=== PATIENT | female | born 1985 | race Caucasian/White ===

== ENCOUNTER 2018-01-22 15:29 | Emergency (ER) | payer SELFPAY ==
[2018-01-22 17:03] LABS: Urine Blood NEGATIVE (NEG); Urine Glucose NEGATIVE (NEG); Urine Protein TRACE (NEG); Urine Specific Gravity 1.015 (1.005-1.030); Urine pH 8.5 (5.0-7.0)
--- NOTE | 2018-01-22 17:07 | RAD REPORT ---
EXAM DESCRIPTION: RAD - Ankle Right 3 View - 01/22/2018 5:01 pm CLINICAL HISTORY: PAIN Trauma, fall COMPARISON: No comparisons FINDINGS: Soft tissue swelling is seen along the lateral malleolus. Oblique fracture is suspected in volving the fifth metatarsal shaft. No dislocation suspected. IMPRESSION: Oblique fracture fifth metatarsal shaft.
--- NOTE | 2018-01-22 17:08 | RAD REPORT ---
EXAM DESCRIPTION: RAD - Foot Right 3 View - 01/22/2018 5:02 pm CLINICAL HISTORY: PAIN Trauma, fall COMPARISON: Foot Right 3 View dated 02/15/2016 FINDINGS: Minimally displaced oblique fracture fifth metatarsal shaft is noted with adjacent soft ti ssue swelling. No dislocation evident. IMPRESSION: Oblique fracture fifth metatarsal shaft.
[2018-01-22] MEDS ORDERED: HYDROCODONE/APAP 5/325 MG TAB ONE (17:17)
[2018-01-22] MEDS ORDERED: IBUPROFEN 200 MG TAB PO ONE (17:17)
--- NOTE | 2018-01-22 17:50 | ER ---
Nurse's Notes [facility] Name: Jazmín Escamilla Age: 32 yrs Sex: Female : 1985 Arrival Date: 01/22/2018 Time: 15:40 Bed 19 Private MD: Diagnosis: Displaced fracture of fifth metatarsal bone, right foot Presentation: 01/22 15:51 Presenting complaint: Patient states: Right ankle/foot pain 2nd to mechanical fall. rk2 Denies LOC or hitting head. Transition of care: patient was not received from another setting of care. Onset of symptoms was January 22, 2018. Risk Assessment: Do you want to hurt yourself or someone else? Patient reports no desire to harm self or others. Initial Sepsis Screen: Does the patient meet any 2 criteria? No. Patient's initial sepsis screen is negative. Does the patient have a suspected source of infection? No. Patient's initial sepsis screen is negative. Care prior to arrival: None. 15:51 Method Of Arrival: Wheelchair rk2 15:51 Acuity: WANG 4 rk2 Triage Assessment: 16:00 General: Appears in no apparent distress. uncomfortable, well groomed, well developed, kr2 well nourished, Behavior is calm, cooperative, appropriate for age. Injury Description: fall resulting in swelling and pain to right foot and ankle. 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 - Social history:: Smoking status: Patient uses tobacco products, smokes two packs cigarettes per day. - Ebola Screening: : Patient negative for fever greater than or equal to 101.5 degrees Fahrenheit, and additional compatible Ebola Virus Disease symptoms. Screenin:59 Abuse screen: Denies threats or abuse. Denies injuries from another. Nutritional kr2 screening: No deficits noted. Tuberculosis screening: No symptoms or risk factors identified. Fall Risk None identified. Assessment: 15:55 General: Appears in no apparent distress. uncomfortable, well groomed, well developed, kr2 well nourished, Behavior is calm, cooperative, appropriate for age. Pain: Complains of pain in dorsum of right foot and lateral aspect of right foot and right ankle Pain does not radiate. Pain currently is 7 out of 10 on a pain scale. Quality of pain is described as aching, tender, Is continuous, Alleviated by rest, Aggravated by repositioning, weight bearing, Noted to be grimacing. Neuro: Level of Consciousness is awake, alert, obeys commands, Oriented to person, place, time, situation, Appropriate for age. Cardiovascular: Capillary refill < 3 seconds in bilateral fingers Patient's skin is warm and dry. Respiratory: Airway is patent Respiratory effort is even, unlabored, Respiratory pattern is regular, symmetrical. Derm: Skin is intact, is healthy with good turgor, Skin is pink, warm \T\ dry. Musculoskeletal: Circulation, motion, and sensation intact. Range of motion: limited in right ankle. 16:40 Reassessment: Patient appears in no apparent distress at this time. Patient and/or kr2 family updated on plan of care and expected duration. Pain level reassessed. Patient is alert, oriented x 3, equal unlabored respirations, skin warm/dry/pink. 18:07 Reassessment: Patient appears in no apparent distress at this time. Patient and/or kr2 family updated on plan of care and expected duration. Pain level reassessed. Patient is alert, oriented x 3, equal unlabored respirations, skin warm/dry/pink. Boot placed to right lower extremity as ordered by Nadya Corbett. Crutches given and patient educated on use of crutches Patient states feeling better. Vital Signs: 15:52 BP 99 / 68; Pulse 83; Resp 17; Temp 98.8; Pulse Ox 98% ; Pain 8/10; rk2 16:40 BP 105 / 63; Pulse 74; Resp 16; Pulse Ox 97% on R/A; kr2 18:07 BP 106 / 70; Pulse 75; Resp 17; Pulse Ox 99% on R/A; kr2 ED Course: 15:40 Patient arrived in ED. as 15:44 Rubens Bueno PA is PHCP. cp 15:44 Glen Douglass MD is Attending Physician. cp 15:47 Rosa Dickerson, TIMMY is Primary Nurse. kr2 15:52 Triage completed. rk2 15:59 Arm band placed on. kr2 16:01 Patient has correct armband on for positive identification. Bed in low position. Call kr2 light in reach. Side rails up X 1. Adult w/ patient. Pulse ox on. NIBP on. 17:00 X-ray completed. Portable x-ray completed in exam room. Patient tolerated procedure la2 well. 17:01 XRAY Foot RIGHT 3 View In Process Unspecified. EDMS 17:01 XRAY Ankle RIGHT 3 view In Process Unspecified. EDMS 17:48 Lincoln Boles MD is Referral Physician. cp 17:52 Crutch training done. walking boot and crutch traing. mh5 18:09 No provider procedures requiring assistance completed. Patient did not have IV access kr2 during this emergency room visit. Administered Medications: 17:20 Drug: Ibuprofen 600 mg Route: PO; kr2 18:09 Follow up: Response: No adverse reaction; Pain is decreased kr2 17:20 Drug: HYDROcodone-acetaminophen 5 mg-325 mg 1 tabs Route: PO; kr2 18:08 Follow up: Response: No adverse reaction; Pain is decreased kr2 Outcome: 17:50 Discharge ordered by MD. cp 18:09 Discharged to home via wheelchair, with family. kr2 18:09 Condition: good 18:09 Discharge instructions given to patient, family, Instructed on discharge instructions, follow up and referral plans. medication usage, crutch walking, use of walking boot Demonstrated understanding of instructions, follow-up care, medications, crutch walking, walking boot Prescriptions given X 2. 18:10 Patient left the ED. kr2 Signatures: Dispatcher [employer] DARYLCT Raya Mcpherson Corey, PA PA cp Martinez, Maria 5 Harriet Ladd az2 Rosa Dickerson, RN RN kr2 Tali Sheridan RN RN rk2 Corrections: (The following items were deleted from the chart) 18:08 18:07 Reassessment: Patient appears in no apparent distress at this time. Patient kr2 and/or family updated on plan of care and expected duration. Pain level reassessed. Patient is alert, oriented x 3, equal unlabored respirations, skin warm/dry/pink. Patient states feeling better. kr2
--- NOTE | 2018-01-22 17:50 | EDPHYS ---
Physician Documentation [facility] Name: Jazmín Escamilla Age: 32 yrs Sex: Female : 1985 Arrival Date: 01/22/2018 Time: 15:40 Bed 19 Private MD: ED Physician Glen Douglass HPI: 01/22 15:50 This 32 yrs old Female presents to ER via Unassigned with complaints of Foot cp Injury. 15:50 The patient presents with an injury, pain, that is acute. The complaints affect the cp right ankle, lateral aspect of right foot and dorsum of right foot. 15:50 Context: misstep occurred getting out of car today. 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 - Social history:: Smoking status: Patient uses tobacco products, smokes two packs cigarettes per day. - Ebola Screening: : Patient negative for fever greater than or equal to 101.5 degrees Fahrenheit, and additional compatible Ebola Virus Disease symptoms. ROS: 15:56 Eyes: Negative for injury, pain, redness, and discharge. cp 15:56 Constitutional: Negative for body aches, chills, fever, poor PO intake. 15:56 ENT: Negative for drainage from ear(s), ear pain, sore throat, difficulty swallowing, difficulty handling secretions. 15:56 Respiratory: Negative for cough, shortness of breath, wheezing. 15:56 Abdomen/GI: Negative for abdominal pain, nausea, vomiting, and diarrhea. 15:56 Back: Negative for pain at rest, pain with movement, radiated pain. 15:56 MS/extremity: Positive for injury or acute deformity, ecchymosis, pain, swelling, tenderness, of the dorsum of right foot and lateral aspect of right foot and right ankle, Negative for paresthesias. 15:56 All other systems are negative. Exam: 16:05 Constitutional: The patient appears in no acute distress, alert, awake, non-toxic, well cp developed, well nourished. 16:05 Head/Face: Normocephalic, atraumatic. cp 16:05 Eyes: Periorbital structures: appear normal, Conjunctiva: normal, no exudate, no cp injection, Lids and lashes: appear normal, bilaterally. 16:05 ENT: External ear(s): are unremarkable, Nose: is normal, Mouth: is normal, Posterior pharynx: is normal, airway is patent. 16:05 Chest/axilla: Inspection: normal. 16:05 Cardiovascular: Rate: normal, Rhythm: regular. 16:05 Respiratory: the patient does not display signs of respiratory distress, Respirations: normal, no use of accessory muscles, no retractions, no splinting, no tachypnea. 16:05 Abdomen/GI: Exam negative for discomfort, distension, guarding, Inspection: abdomen appears normal. 16:05 Back: pain, is absent, ROM is normal. 16:05 Musculoskeletal/extremity: Extremities: grossly normal except: noted in the dorsum of right foot and lateral aspect of right foot and right ankle: ecchymosis, pain, swelling, tenderness, Pulses: noted to be 2+ in the right dorsalis pedis artery, Sensation intact. Achilles tendon intact and no pain noted proximal fibula. 16:05 Skin: cellulitis, is not appreciated, no rash present. cp Vital Signs: 15:52 BP 99 / 68; Pulse 83; Resp 17; Temp 98.8; Pulse Ox 98% ; Pain 8/10; rk2 16:40 BP 105 / 63; Pulse 74; Resp 16; Pulse Ox 97% on R/A; kr2 18:07 BP 106 / 70; Pulse 75; Resp 17; Pulse Ox 99% on R/A; kr2 Procedures: 18:05 Splinting: Splint applied to right ankle and right foot using walking boot. applied by cp nurse. Examined by me, post splint application: neurovascular intact, Patient tolerated well. 18:05 Crutch training provided to patient and/or family. Return demonstration given. cp MDM: 15:49 Patient medically screened. cp 17:45 Data reviewed: vital signs, nurses notes, radiologic studies, plain films. cp 17:45 Test interpretation: by ED physician or midlevel provider: plain radiologic studies. cp Counseling: I had a detailed discussion with the patient and/or guardian regarding: the historical points, exam findings, and any diagnostic results supporting the discharge/admit diagnosis, radiology results, the need for outpatient follow up, a orthopedic surgeon, to return to the emergency department if symptoms worsen or persist or if there are any questions or concerns that arise at home. Response to treatment: the patient's symptoms have markedly improved after treatment. 01/22 16:29 Order name: Urine Dipstick--Ancillary (enter results); Complete Time: 17:09 em1 01/22 17:09 Interpretation: Normal except: UPH 8.5. cp 01/22 16:29 Order name: Urine --Ancillary (enter results); Complete Time: 17:09 em1 01/22 15:50 Order name: XRAY Foot RIGHT 3 View; Complete Time: 17:09 cp 01/22 15:50 Order name: XRAY Ankle RIGHT 3 view; Complete Time: 17:09 cp 01/22 15:50 Order name: Urine Test (obtain specimen); Complete Time: 16:27 cp 01/22 15:50 Order name: Urine Dipstick-Ancillary (obtain specimen); Complete Time: 16:27 cp 01/22 17:10 Order name: Crutches; Complete Time: 17:42 cp 01/22 17:31 Order name: Walking boot; Complete Time: 17:42 cp Administered Medications: 17:20 Drug: Ibuprofen 600 mg Route: PO; kr2 18:09 Follow up: Response: No adverse reaction; Pain is decreased kr2 17:20 Drug: HYDROcodone-acetaminophen 5 mg-325 mg 1 tabs Route: PO; kr2 18:08 Follow up: Response: No adverse reaction; Pain is decreased kr2 Disposition: 01/23 13:41 Co-signature as Attending Physician, Glen Douglass MD. Disposition: 01/22/18 17:50 Discharged to Home. Impression: Displaced fracture of fifth metatarsal bone, right foot. - Condition is Stable. - Discharge Instructions: Metatarsal Fracture, Undisplaced. - Prescriptions for Ibuprofen 600 mg Oral Tablet - take 1 tablet by ORAL route every 6 hours As needed take with food; 30 tablet. Tylenol- Codeine #3 300-30 mg Oral Tablet - take 2 tablets by ORAL route every 6 hours As needed; 20 tablet. - Medication Reconciliation Form, Thank You Letter, Antibiotic Education, Prescription Opioid Use form. - Follow up: Lincoln Boles MD; When: 5 - 6 days; Reason: right foot fracture. - Problem is new. - Symptoms have improved. Signatures: Dispatcher [employer] EDMS Rubens Bueno PA PA cp Glen Douglass MD MD Rosa Dickerson RN RN kr2 Tali Sheridan RN RN rk2 Corrections: (The following items were deleted from the chart) 01/22 17:31 17:10 Splint - Posterior Leg ordered. cp cp 18:10 17:50 01/22/2018 17:50 Discharged to Home. Impression: Displaced fracture of fifth kr2 metatarsal bone, right foot. Condition is Stable. Forms are Medication Reconciliation Form, Thank You Letter, Antibiotic Education, Prescription Opioid Use. Follow up: Dr. Lincoln Boles; When: 5 - 6 days; Reason: right foot fracture. Problem is new. Symptoms have improved. cp
== END 2018-01-22 18:10 | disposition home or self-care (01) ==
LOC: ER 15:29
DX: S92.351A Displaced fracture of fifth metatarsal bone, right foot, initial encounter for closed fracture (principal); X58.XXXA Exposure to other specified factors, initial encounter; Y93.89 Activity, other specified; Y92.9 Unspecified place or not applicable; F17.210 Nicotine dependence, cigarettes, uncomplicated
CPT/HCPCS: 81003; 81025; 99284

== ENCOUNTER 2021-12-04 23:26 | Emergency (ER) | payer SELFPAY ==
--- OUTSIDE RECORDS SUMMARY | 2021-12-04 23:29 | XMS REPORT | Continuity of Care Document ---
:1985 Author Organization [facility] t Address [address] [place] [address] Care Team Providers Name Role Phone Dominick Mehta Primary Care Physician Bernarda Melgar Attending Clinician Bernarda CULP Attending Clinician Unavailable Doctor Unassigned, Name Attending Clinician Unavailable Dominick Mehta Attending Clinician Oksana HARTLEY R Attending Clinician Payers Payer Name Policy Type Policy Number Effective Date Expiration Date S ource Advance Directives Directive Decision Effective Termination Comments Source Date Date Healthcare Agents on N/A [facility] FileNameRelationipHealthVon [facility] Agent Medical RelationshipCommunicationCyntdca Branch WilcoxMotherHealth Care [phone] (Mobile) Problems Condition Condition Condition Status Onset Resolution Last Treating Co mments Source Name Details Category Date Date Treatment Clinician Date Nexplanon Nexplanon Disease Active Uni vers insertion insertion 5-10 ity of 00:00: [place] 00 Medical Branch Papanicola Papanicola Disease Active U nivers ou smear ou smear 9-19 ity of of cervix [place] with [place] 00 Med[place] ross grade grade 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) Cervical Cervical Disease Active Unive rs high risk high risk 9-19 ity of human human 00:00: [place] papillomav papillomav 00 Me dical irus (HPV) irus (HPV) Br anch DNA test DNA test positive positive Abnormal Abnormal Disease Active Unive rs glandular glandular 9-19 ity of Papan[place]ola [place] smear 00 Medica l of cervix of cervix Bran ch BMI BMI Disease Active Univers 21.0-21.9, 21.0-21.9, 9-11 it y of adult adult 00:00: [address] Tobacco Tobacco Disease Active Univers use use 9-11 ity of disorder disorder 00:00: [address] Nexplanon Nexplanon Disease Active Uni vers removal removal 9-14 ity of 00:00: [address] Active Active Disease Active Univers labor at labor at 7-30 ity of term term 00:00: [address] Uterine Uterine Disease Active Univers size-date size-date 6-30 [place] of discrepanc discrepanc [place], [place] Medical antepartum antepartum Br anch , third , third trimester trimester Need for Need for Disease Active Unive rs Tdap Tdap 6-16 ity of vaccinatio vaccinatio 00:[place] 00 [facility] Uterine Uterine Disease Active Univers size-date size-date 5-20 ity of discrepanc discrepanc 00:[place], 00 Medical antepartum antepartum Br anch , second , second trimester trimester Dizziness Dizziness Disease Active Uni vers and and 5-20 ity of giddiness giddiness 00:[place] [facility] Branch Coughing Coughing Disease Active Unive rs 5-20 ity of 00:00: [address] Anemia of Anemia of Disease Active Uni vers mother in mother in 4-17 ity of , , [place] antepartum antepartum 00 Me dical Branch History of History of Disease Active U nivers loop loop 3-16 ity of electrical electrical [place] excision excision 00 Medica l procedure procedure Bran ch (LEEP) (LEEP) Supervisio Supervisio Disease Active U nivers n of n of 3-16 ity of high-risk high-risk 00:[place] with with Branch insufficie insufficie nt nt care care Multiparit Multiparit Disease Active U nivers y y 3-16 ity of 00:00: [place] 00 Medical Branch Uncertain Uncertain Disease Active Uni vers dates, dates, 3-16 ity of antepartum antepartum [place] Tooth pain Tooth pain Disease Active U nivers 3-16 ity of 00:00: [place] 00 [facility] Tobacco Tobacco Disease Active Univers use use 3-16 ity of complicati complicati 00:00[place] ng ng 00 Medical Bran ch History of History of Disease Active Overview : Univers loop loop 3-16 Term baby ity of electrosur electrosur 00:[place] gical gical 00 procedure Medical excision excision Branch procedure procedure (LEEP) of (LEEP) of cervix cervix affecting affecting Allergies, Adverse Reactions, Alerts Allergy Allergy Status Severity Reaction(s) Onset Inactive Treating Comm ents Source Name Type Date Date Clinician NO KNOWN Drug Active Univers ALLERGIE Class ity of S [facility] Social History Social Habit Start Date Stop Date Quantity Comments Source Exposure to Not sure University of SARS-CoV-2 (event) [facility] History of tobacco Cigarette Smoker University of [facility] Alcohol intake 2020-12-31 2020-12-31 0 /d University of 00:00:00 00:00:00 [facility] Tobacco use and 2014-07-02 2014-07-02 Never used Universit y of exposure 00:00:00 00:00:00 [facility] Cigarettes smoked 2014-07-02 2014-07-02 Univers ity of current (pack per 00:00:00 00:00:00 [place] Gabriel ) - Reported Branch Tobacco Comment 2014-07-02 2014-07-02 has cut Universit y of 00:00:00 00:00:00 back-smokes 2-3 [place] Med ical x per day Branch Sex [birth year] Universit y of 00:00:00 00:00:00 [facility] Smoking Status Start Date Stop Date Source Current every day smoker 2014-07-02 00:00:00 Uni versity of [facility] Medications Ordered Filled Start Stop Current Ordering Indication Dosage Frequency Signature Comments Components Source Medication Medication Date Date Medication? Clinician (SIG) Name Name etonogestre 2020- No [id number] 68mg Univers L 12-31- ity of (NEXPLANON) 16:00: 14:56 [place] implant 68 00 :00 Medical mg Branch etonogestre 2020- No [id number] 68mg 68 mg, Univers L 12-31- Subdermal, ity of (NEXPLANON) 16:00: 14:56 ONCE NOW, [place] implant 68 00 :00 1 dose, Medica l mg [facility] 12/31/20 at 1100, Routine
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
Use approved by: DRAG OUT WORKER No known No Univers medications 5-26 ity of 10:34: [address] No known No Univers medications 5-26 ity of 10:34: [address] traMADOL Yes 50mg Take 1 Univers (ULTRAM) 50 7-31 tablet by ity of mg tablet 00:00: mouth [place] 00 every 6 Medical (six) Branch hours as needed for Pain unrelieved by non-narcot ic analgesics . docusate Yes 240mg Take 1 Univer s calcium 7-31 capsule by ity of (SURFAK) 00:00: mouth once [place] 240 mg 00 daily as Medical capsule needed for Branch Constipati on. ibuprofen Yes 600mg Take 1 Unive rs (MOTRIN) 7-31 tablet by ity of 600 mg 00:00: mouth [place] tablet 00 every 6 Medical (six) Branch hours as needed for Pain (scale 1-3) or Pain (scale 4-6). Take with food or milk. traMADOL Yes 50mg Take 1 Univers (ULTRAM) 50 7-31 tablet by ity of mg tablet 00:00: mouth [place] 00 every 6 Medical (six) Branch hours as needed for Pain unrelieved by non-narcot ic analgesics . docusate Yes 240mg Take 1 Univer s calcium 7-31 capsule by ity of (SURFAK) 00:00: mouth once [place] 240 mg 00 daily as Medical capsule needed for Branch Constipati on. ibuprofen Yes 600mg Take 1 Unive rs (MOTRIN) 7-31 tablet by ity of 600 mg 00:00: mouth [place] tablet 00 every 6 Medical (six) Branch hours as needed for Pain (scale 1-3) or Pain (scale 4-6). Take with food or milk. traMADOL 2018- No 50mg Take 1 Univer s (ULTRAM) 50 7--11 tablet by it y of mg tablet 00:00: 00:00 mouth [place] 00 :00 every 6 Medical (six) Branch hours as needed for Pain unrelieved by non-narcot ic analgesics . docusate 2019- No 240mg Take 1 Unive rs calcium 7-- capsule by ity o f (SURFAK) 00:00: 00:00 mouth [place] 240 mg 00 :00 daily as Medical capsule needed for Branch Constipati on. ibuprofen 2019- No 600mg Take 1 Univ ers (MOTRIN) 7--11 tablet by ity o f 600 mg 00:00: 00:00 mouth [place] tablet 00 :00 every 6 Medical (six) Branch hours as needed for Pain (scale 1-3) or Pain (scale 4-6). Take with food or milk. traMADOL 2019- No 50mg Take 1 Univer s (ULTRAM) 50 7- 09-11 tablet by it y of mg tablet 00:00: 00:00 mouth [place] 00 :00 every 6 Medical (six) Branch hours as needed for Pain unrelieved by non-narcot ic analgesics . docusate 2019- No 240mg Take 1 Unive rs calcium 7-31 09-11 capsule by ity o f (SURFAK) 00:00: 00:00 mouth [place] 240 mg 00 :00 daily as Medical capsule needed for Branch Constipati on. ibuprofen 2018- No 600mg Take 1 Univ ers (MOTRIN) 03-07 tablet by ity o f 600 mg 00:00: 00:00 mouth [place] tablet 00 :00 every 6 Medical (six) Branch hours as needed for Pain (scale 1-3) or Pain (scale 4-6). Take with food or milk. ferrous Yes 325mg Take 1 Univers sulfate 5-20 tablet by ity of (IRON, 00:00: mouth 3 [place] FERROUS 00 (three) Medical SULFATE,) times Branch 325 mg (65 daily with mg iron) meals. tablet ferrous Yes 325mg Take 1 Univers sulfate 5-20 tablet by ity of (IRON, 00:00: mouth 3 [place] FERROUS 00 (three) Medical SULFATE,) times Branch 325 mg (65 daily with mg iron) meals. tablet ferrous 2018- No 325mg Take 1 Univer s sulfate 12-25 tablet by ity of (IRON, 00:00: 00:00 mouth 3 [place] FERROUS 00 :00 (three) Medical SULFATE,) times Branch 325 mg (65 daily with mg iron) meals. tablet ferrous 2018- No 325mg Take 1 Univer s sulfate -04-18 tablet by ity of (IRON, 00:00: 00:00 mouth 3 [place] FERROUS 00 :00 (three) Medical SULFATE,) times Branch 325 mg (65 daily with mg iron) meals. tablet No known No [facility] No known No [facility] No known No [facility] No known No [facility] No known No Univers medications [facility] No known No Univers medications [facility] Immunizations Ordered Filled Immunization Date Status Comments [facility] e Immunization Name Name [facility] 2016-01-22 Completed University of 00:00:00 [facility] Td 2016-01-22 Completed University of 00:00:00 [facility] Td 2016-01-22 Completed University of 00:00:00 [facility] TDAP 2016-01-22 Completed University of 00:00:00 [place] [facility] TDAP 2016-01-22 Completed University of 00:00:00 [place] [facility] TDAP 2016-01-22 Completed University of 00:00:00 [place] [facility] TDAP 2016-01-22 Completed University of 00:00:00 [place] [facility] TDAP 2016-01-22 Completed University of 00:00:00 [place] [facility] TDAP 2016-01-22 Completed University of 00:00:00 [place] [facility] TDAP 2016-01-22 Completed University of 00:00:00 [place] [facility] TDAP 2016-01-22 Completed University of 00:00:00 [place] [facility] TDAP 2016-01-22 Completed University of 00:00:00 [place] [facility] Tdap 2016-01-22 Completed University of 00:00:00 [place] [facility] Tdap 2016-01-22 Completed University of 00:00:00 [place] [facility] Tdap 2016-01-22 Completed University of 00:00:00 [facility] Branch Tdap 2014-10-18 Completed University of 00:00:00 [place] [facility] Tdap 2014-10-18 Completed University of 00:00:00 [place] [facility] Tdap 2014-10-18 Completed University of 00:00:00 [place] [facility] TDAP 2014-10-18 Completed University of 00:00:00 [place] [facility] TDAP 2014-10-18 Completed University of 00:00:00 [place] [facility] TDAP 2014-10-18 Completed University of 00:00:00 [place] [facility] TDAP 2014-10-18 Completed University of 00:00:00 [place] [facility] TDAP 2014-10-18 Completed University of 00:00:00 [place] [facility] TDAP 2014-10-18 Completed University of 00:00:00 [place] [facility] TDAP 2014-10-18 Completed University of 00:00:00 [place] [facility] TDAP 2014-10-18 Completed University of 00:00:00 [place] [facility] TDAP 2014-10-18 Completed University of 00:00:00 [place] [facility] Tdap 2014-10-18 Completed University of 00:00:00 [place] [facility] Tdap 2014-10-18 Completed University of 00:00:00 [place] [facility] Tdap 2014-10-18 Completed University of 00:00:00 [facility] Branch Td 2007-08-08 Completed University of 00:00:00 [place] [facility] Td 2007-08-08 Completed University of 00:00:00 [place] [facility] Td 2007-08-08 Completed University of 00:00:00 [place] [facility] Td 2007-08-08 Completed University of 00:00:00 [place] [facility] Td 2007-08-08 Completed University of 00:00:00 [place] [facility] Td 2007-08-08 Completed University of 00:00:00 [place] [facility] Td 2007-08-08 Completed University of 00:00:00 [place] [facility] Td 2007-08-08 Completed University of 00:00:00 [place] [facility] Td 2007-08-08 Completed University of 00:00:00 [place] [facility] Td 2007-08-08 Completed University of 00:00:00 [place] [facility] Td 2007-08-08 Completed University of 00:00:00 [place] [facility] Td 2007-08-08 Completed University of 00:00:00 [place] [facility] Td 2007-08-08 Completed University of 00:00:00 [place] [facility] Td 2007-08-08 Completed University of 00:00:00 [place] [facility] Td 2007-08-08 Completed University of 00:00:00 [facility] Vital Signs Vital Name Observation Time Observation Value Comments Source Systolic blood 2020-12-31 14:36:00 116 mm[Hg] Univer sity of pressure [facility] Diastolic blood 2020-12-31 14:36:00 75 mm[Hg] Unive rsity of [facility] Heart rate 2020-12-31 14:36:00 76 /[facility] Body temperature 2020-12-31 14:36:00 37.17 Norah [facility] ersity [facility] Respiratory rate 2020-12-31 14:36:00 16 /min [facility] ersity [facility] Body height 2020-12-31 14:36:00 149.9 cm [facility] Body weight 2020-12-31 14:36:00 49.261 kg [facility] BMI 2020-12-31 14:36:00 21.93 kg/m2 [facility] ty [facility] Heart rate 2020-12-15 19:13:00 86 /min [facility] Body temperature 2020-12-15 19:13:00 36.83 Norah [facility] Respiratory rate 2020-12-15 19:13:00 16 /min Univ ersity of [place] [facility] Body height 2020-12-15 19:13:00 152.4 cm Universi ty of [place] [facility] Body weight 2020-12-15 19:13:00 49.079 kg Universi ty of [place] [facility] BMI 2020-12-15 19:13:00 21.13 kg/m2 Universi ty of [place] [facility] Systolic blood 2019-04-18 18:25:00 106 mm[Hg] Univer sity of pressure [place] [facility] Diastolic blood 2019-04-18 18:25:00 74 mm[Hg] Unive rsity of pressure [place] [facility] Heart rate 2019-04-18 18:25:00 73 /min Universi ty of [place] [facility] Body temperature 2019-04-18 18:25:00 36.56 Norah Univ ersity of [place] [facility] Respiratory rate 2019-04-18 18:25:00 16 /min Univ ersity of [place] [facility] Body height 2019-04-18 18:25:00 149.9 cm Universi ty of [place] [facility] Body weight 2019-04-18 18:25:00 47.401 kg Universi ty of [place] [facility] BMI 2019-04-18 18:25:00 21.11 kg/m2 Universi ty of [place] [facility] Systolic blood 2019-03-14 02:23:00 101 mm[Hg] Univer sity of pressure [place] [facility] Diastolic blood 2019-03-14 02:23:00 72 mm[Hg] Unive rsity of pressure [place] [facility] Heart rate 2019-03-14 02:23:00 83 /min Universi ty of [place] [facility] Body temperature 2019-03-14 02:23:00 36.94 Norah Univ ersity of [place] [facility] Respiratory rate 2019-03-14 02:23:00 18 /min Univ ersity of [place] [facility] Body height 2019-03-14 02:23:00 149.9 cm Universi ty of [place] [facility] Body weight 2019-03-14 02:23:00 46.72 kg Universi ty of [place] [facility] BMI 2019-03-14 02:23:00 20.80 kg/m2 Universi ty of [place] [facility] Oxygen saturation in 2019-03-14 02:23:00 100 /min [facility] Arterial blood by [facility] Pulse oximetry Branch Procedures Procedure Date / Time Performing Clinician Source Performed POCT TEST 2020-12-31 14:38:00 Camryn Culp [facility] CONSENT FOR 2020-12-31 05:01:00 Doctor Unassigned, No [facility] CONTRACEPTION [facility] POCT TEST 2020-12-15 19:14:00 Camryn Culp [facility] ASSIGNMENT OF BENEFITS 2020-12-15 18:44:44 Doctor Unassigned, No [facility] BCCS-RELATED 2019-10-08 06:01:00 Doctor Unassigned, No [facility] DOCUMENTATION [facility] ASSIGNMENT OF BENEFITS 2019-04-18 18:02:23 Doctor Unassigned, No [facility] XR FOOT 3+ VW RIGHT 2019-03-14 03:08:57 Katerin Gandhi [facility] NOTICE OF PRIVACY 2019-03-14 02:18:08 Doctor Unassigned, No [facility] CONSENT/REFUSAL FOR 2019-03-14 02:17:48 [facility] Encounters Start End Encounter Admission Attending Care Care Encounter Source Date/Time Date/Time Type Type Clinicians Facility Department ID 2021-10-12 2021-10-12 Telephone EDSON Culp [id number] Univers 00:00:00 00:00:00 Camryn Menchaca [employer]ER [id number] ity of [facility] [id number] [place] MATERNAL [id number] Med ical & CHILD [address] [place] [address] 2021-07-16 2021-07-16 Telephone EDSON Culp [id number] Univers 00:00:00 00:00:00 Camryn Menchaca [employer] OUT WORKER [id number] ity of [facility] [id number] [place] MATERNAL [id number] Med ical & CHILD [address] [place] [address] 2020-12-31 2020-12-31 Office EDSON Culp [id number] Univers 09:16:11 10:12:00 Visit Camryn R [employer] [id number] ity of REGIONAL [id number] [place] MATERNAL [phone] [facility] & [address] 2020-12-31 2020-12-31 Outpatient Bernarda CULP [facility] [id number] Univers 09:00:00 09:00:00 CAMRYN [id number] ity o f [facility] 2020-12-31 2020-12-31 [id number] Univers 09:00:00 09:00:00 SVENNDA ity o [facility] 2020-12-31 2020-12-31 Orders Doctor BYRON [id number] Univers 00:00:00 00:00:00 Only Unassigned, OLY [id number] ity of [facility] [id number] [place] as [id number] [address] 2020-12-15 2020-12-15 [facility] [id number] Univers 13:46:08 14:40:19 Visit Camryn Menchaca [employer] [id number] ity of REGIONAL [id number] [place] MATERNAL [phone] [facility] & [address] 2020-12-15 2020-12-15 [facility] [id number] Univers 13:30:00 13:30:00 SVENLESLEY [id number] ity o [facility] 2020-12-15 2020-12-15 [facility] [id number] Univers 13:30:00 13:30:00 SVENNDA ity o [facility] 2020-12-15 2020-12-15 Orders Doctor BYRON [id number] Univers 00:00:00 00:00:00 Only Unassigned, OLY [id number] ity of [facility] [id number] [place] [id number] [address] 2020-12-15 2020-12-15 [facility] [id number] Univers 00:00:00 00:00:00 Camryn Menchaca [employer] WORKER [id number] ity of REGIONAL [id number] [place] MATERNAL [id number] [facility] ical & CHILD [address] [place] [address] 2020-12-10 2020-12-10 Outpatient R [facility] [id number] Univers 09:00:00 09:00:00 [id number] ity of [facility] 2020-04-15 2020-04-15 [facility] [id number] Univers 10:00:00 10:00:00 CAMRYN [id number] ity o f [facility] 2019-10-08 2019-10-08 Orders Doctor BYRON [id number] Univers 00:00:00 00:00:00 Only Unassigned, OLY [id number] ity of [facility] [id number] [place] as [id number] [address] 2019-04-26 2019-04-26 [facility] [id number] Univers 00:00:00 00:00:00 Heidi Tan [employer] WORK[employer] [id number] it y of REGIONAL [id number] [place] MATERNAL [id number] [facility] & CHILD [address] [place] [address] 2019-04-18 2019-04-18 Office [facility] [id number] Univers 13:11:03 14:14:59 Visit Heidi Tan [employer] WORK[employer] [id number] it y of REGIONAL [id number] [place] MATERNAL [id number] [facility] & CHILD [address] [place] [address] 2019-04-18 2019-04-18 Orders Doctor BYRON [id number] Univers 00:00:00 00:00:00 Only Unassigned, OLY [id number] ity of [facility] [id number] [place] as [id number] [address] 2019-03-13 2019-03-13 Emergency [facility] [id number] Univers 22:32:46 22:50:00 Katerin Fernandez [id number] i Stephanie [id number] [facility] [id number] [place] [id number] Union Results Test Description Test Time Test Comments Results Result Comments Source POCT TEST 2020-12-31 14:38:00 Test Item Value Reference Range Interpretation Comme nts POCT PREG (test code = 1605) Negative On board controls acceptable with C Line (test code = 3574) Yes POCT PREG LOT # (test code = 3575) POCT PREG TEST DATE (test code = 3576) Lab Interpretation (test code = 76525-5) Normal [facility] [id number] 14:38:00 Test Item Value Reference Range Interpretation Comments POCT PREG (test code = 1605) Negative On board controls acceptable with C Yes Line (test code = 3574) POCT PREG LOT # (test code = 3575) POCT PREG TEST DATE (test code = 3576) Lab Interpretation (test code = Normal 66538-7) [facility] [id number] 19:15:00 Test Item Value Reference Range Interpretation Comments POCT PREG (test code = 1605) Negative On board controls acceptable with C Yes Line (test code = 3574) POCT PREG LOT # (test code = 3575) POCT PREG TEST DATE (test code = 3576) Lab Interpretation (test code = Normal 98830-9) [facility] [id number] 19:15:00 Test Item Value Reference Range Interpretation Comments POCT PREG (test code = 1605) Negative On board controls acceptable with C Yes Line (test code = 3574) POCT PREG LOT # (test code = 3575) POCT PREG TEST DATE (test code = 3576) Lab Interpretation (test code = Normal 71045-7) [facility]+ VW [id number] 03:13:23 No acute fracture or dislocation. IMarcin MD., have reviewed this study and agree with theabove report. 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 Thejoint spaces are maintained. No soft tissue abnormality is seen. 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 Thejoint spaces are maintained. No soft tissue abnormality is seen. IMPRESSIONNo acute fracture or dislocation.IWenceslao MD., have reviewed this study and agree with theabove report.[facility]
[2021-12-05 01:44] LABS: Absolute Lymphocytes (CBC) 2.8 K/uL (0.7-4.9); Hematocrit 36.7 % (36.0-45.0); Lymphocytes % 25.2 % (15.3-44.8); RBC Red Blood Cell Count 3.99 M/uL (3.86-4.86)
[2021-12-05 01:51] LABS: Urine Blood Trace-intact (Negative); Urine Glucose Negative (Negative); Urine Protein Negative (Negative); Urine Specific Gravity 1.025 (1.005-1.030); Urine pH 5.5 (5.0-7.0)
[2021-12-05] MEDS ORDERED: NA CHLORIDE 0.9% 1,000 ML ONE (01:54)
[2021-12-05 02:00] LABS: Urine Specific Gravity/Preg 1.025 (1.005-1.030)
[2021-12-05 02:06] LABS: ALT/SGPT 20 U/L (12-78); AST/SGOT 14 U/L (15-37); Albumin 3.4 g/dL (3.4-5.0); Alkaline Phosphatase 74 U/L (45-117); BUN Blood Urea Nitrogen 16 mg/dL (7-18); Bicarbonate 25 mmol/L (21-32); Bilirubin Total 0.1 mg/dL (0.2-1.0); Glucose Level 67 mg/dL (74-106); Lipase 138 U/L (73-393); Potassium 3.9 mmol/L (3.5-5.1); Protein, Total 6.3 g/dL (6.4-8.2); Sodium Level 140 mmol/L (136-145)
[2021-12-05 02:07] LABS: Blood Morphology Comment NOT SEEN (NOT SEEN); Platelet Estimate ADEQ
[2021-12-05 02:11] LABS: Barbiturates NEGATIVE (NEGATIVE); Benzodiazepines NEGATIVE (NEGATIVE); Cocaine NEGATIVE (NEGATIVE); METHAMPHETAM POSITIVE (NEGATIVE); Methadone NEGATIVE (NEGATIVE); Opiates NEGATIVE (NEGATIVE); Phencyclidine NEGATIVE (NEGATIVE); THC Cannibis POSITIVE (NEGATIVE)
[2021-12-05] MEDS ORDERED: CEFTRIAXONE 1000 MG/VIAL ONE (03:35)
[2021-12-05] MEDS ORDERED: NA CHLORIDE 0.9% 50 ML ONE (03:35)
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
[2021-12-05 05:00] VITALS: TEMP 98.4
[2021-12-05 05:04] VITALS: BP 114/78; O2SAT 100
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
== END 2021-12-05 04:48 | disposition home or self-care (01) ==
LOC: ER 23:26
DX: N39.0 Urinary tract infection, site not specified (principal); R51.9 Headache, unspecified; R10.84 Generalized abdominal pain; F15.10 Other stimulant abuse, uncomplicated; F12.10 Cannabis abuse, uncomplicated; F17.210 Nicotine dependence, cigarettes, uncomplicated
CPT/HCPCS: 36415; 70450; 72125; 74177; 80053; 80307; 81003; 81025; 82550; 83690; 85025; 96361; 96365; 99284; J7030; Q9967